=== PATIENT | male | born 1955 | race Two or more races ===

== ENCOUNTER 2022-09-07 23:57 | Emergency (ER) | payer SELFPAY ==
[~2022-09-07] VITALS: Ht 170.2 cm; Wt 90.0 kg
[2022-09-08 03:00] VITALS: BP 125/82
== END 2022-09-08 03:58 | disposition left against medical advice (07) ==
LOC: EDBD 23:57 → ER 23:57
DX: S02.842A Fracture of lateral orbital wall, left side, initial encounter for closed fracture (principal); S02.32XA Fracture of orbital floor, left side, initial encounter for closed fracture; F12.10 Cannabis abuse, uncomplicated; Z53.29 Procedure and treatment not carried out because of patient's decision for other reasons; S01.112A Laceration without foreign body of left eyelid and periocular area, initial encounter; S02.40FA Zygomatic fracture, left side, initial encounter for closed fracture; W19.XXXA Unspecified fall, initial encounter; Y93.89 Activity, other specified; Y92.89 Other specified places as the place of occurrence of the external cause; Y99.8 Other external cause status
CPT/HCPCS: 70450; 70486; 72125